=== PATIENT | female | born 1965 | race Caucasian/White ===

== ENCOUNTER 2022-06-05 00:19 | Emergency (ER) | payer OTHER ==
--- NOTE | 2022-06-05 00:43 | ED Cardiac General ---
History of Present Illness General Chief Complaint: Cardiac/General Problems Stated Complaint: HIGH BP/HEARTRATE,LEG PAIN History of Present Illness Date Seen by Provider: Jun 05, 2022 Time Seen by Provider: 00:30 Initial Comments 57-year-old female presents with rapid heart rate, high blood pressure. She reports that she just awoke tonight noticed her heart rate was rapid. That she has had a hard time sleeping the last 3 nights. patient reports that she has had bilateral leg pain for least a month month and a half. It has been worse for last couple days. Patient reports that she has a history of high blood pres sure. She is currently on lisinopril, verapamil and propanolol. Patient denies a history of atrial fibs or any known history of an arrhythmia. Patient denies chest pain, fever or chills. She does report that she has had a hard time sleeping recently and sleeping with her mouth open. She has not been evaluated for sleep apnea. Allergies and Home Medications Allergies Coded Allergies: No Known Drug Allergies (Unverified , 06/05/22) Patient Home Medication List Home Medication List Reviewed: Yes Review of Systems Review of Systems Constitutional: No chills, No fever Respiratory: Denies Cough, Denies Shortness of Air Cardiovascular: Denies Chest Pain; Irregular Heart Rate, Palpitations Gastrointestinal: No Symptoms Reported Genitourinary: No Symptoms Reported Musculoskeletal: no symptoms reported Skin: no symptoms reported Psychiatric/Neurological: No Symptoms Reported Endocrine: No Symptoms Reported Hematologic/Lymphatic: No Symptoms Reported Physical Exam Vital Signs Vital Signs - First Documented 06/05/22 00:22 Pulse 164 Resp 22 B/P (MAP) 210/138 (162) Pulse Ox 96 O2 Delivery Room Air Capillary Refill : Height, Weight, BMI Height: '" Weight: lbs. oz. kg; BMI Method: General Appearance: No Apparent Distress, WD/WN Respiratory: Lungs Clear, Normal Breath Sounds, No Accessory Muscle Use, No Respiratory Distress Cardiovascular: Normal Peripheral Pulses, Irregularly Irregular, Tachycardia Gastrointestinal: Non Tender, Soft Extremity: Normal Capillary Refill, Normal Inspection, Normal Range of Motion Neurologic/Psychiatric: Alert, Oriented x3, No Motor/Sensory Deficits, Normal Mood/Affect, charge hand II-XII Norm as Tested Skin: Normal Color, Warm/Dry Progress/Results/Core Measures Results/Orders Lab Results Laboratory Tests Test 06/05/22 00:38 Range/Units White Blood Count 7.3 4.3-11.0 10^3/uL Red Blood Count 4.28 3.80-5.11 10^6/uL Hemoglobin 12.3 11.5-16.0 g/dL Hematocrit 36 35-52 % Mean Corpuscular Volume 84 80-99 fL Mean Corpuscular Hemoglobin 29 25-34 pg Mean Corpuscular Hemoglobin Concent 34 32-36 g/dL Red Cell Distribution Width 13.7 10.0-14.5 % Platelet Count 283 130-400 10^3/uL Mean Platelet Volume 9.5 9.0-12.2 fL Immature Granulocyte % (Auto) 0 % Neutrophils (%) (Auto) 61 42-75 % Lymphocytes (%) (Auto) 26 12-44 % Monocytes (%) (Auto) 8 0-12 % Eosinophils (%) (Auto) 4 0-10 % Basophils (%) (Auto) 1 0-10 % Neutrophils # (Auto) 4.5 1.8-7.8 10^3/uL Lymphocytes # (Auto) 1.9 1.0-4.0 10^3/uL Monocytes # (Auto) 0.6 0.0-1.0 10^3/uL Eosinophils # (Auto) 0.3 0.0-0.3 10^3/uL Basophils # (Auto) 0.1 0.0-0.1 10^3/uL Immature Granulocyte # (Auto) 0.0 0.0-0.1 10^3/uL Sodium Level 139 135-145 MMOL/L Potassium Level 3.4 L 3.6-5.0 MMOL/L Chloride Level 102 98-107 MMOL/L Carbon Dioxide Level 25 21-32 MMOL/L Anion Gap 12 5-14 MMOL/L Blood Urea Nitrogen 12 7-18 MG/DL Creatinine 0.62 0.60-1.30 MG/DL Estimat Glomerular Filtration Rate 104 BUN/Creatinine Ratio 19 Glucose Level 145 H 70-105 MG/DL Calcium Level 9.9 8.5-10.1 MG/DL Corrected Calcium 9.8 8.5-10.1 MG/DL Magnesium Level 1.9 1.6-2.4 MG/DL Total Bilirubin 0.4 0.1-1.0 MG/DL Aspartate Amino Transf (AST/SGOT) 23 5-34 U/L Alanine Aminotransferase (ALT/SGPT) 19 0-55 U/L Alkaline Phosphatase 82 40-136 U/L C-Reactive Protein 1.03 H <0.50 MG/DL Total Protein 7.2 6.4-8.2 GM/DL Albumin 4.1 3.2-4.5 GM/DL My Orders Orders - SHIRLEY DE SANTIAGO DO Cbc With Automated Diff (06/05/22 00:28) Comprehensive Metabolic Panel (06/05/22 00:28) Magnesium (06/05/22:28) Crp Fs (06/05/22:28) Chest 1 View Ap/Pa Only (06/05/22:28) Ed Iv/Invasive Line Start (06/05/22:28) Ekg Tracing (06/05/22:) Monitor-Rhythm Ecg Trace Only (06/05/22:28) Metoprolol Tartrate Injection (Lopressor (06/05/22 00:45) Ekg Tracing (06/05/22 00:45) Medications Given in ED Current Medications Medications Dose Ordered Sig/Emily Route Start Time Stop Time Status Last Admin Dose Admin Metoprolol Tartrate 5 mg ONCE ONCE IV 06/05/22 00:45 06/05/22 00:46 DC 06/05/22 00:53 5 MG Vital Signs/I&O 06/05/22 00:22 Pulse 164 Resp 22 B/P (MAP) 210/138 (162) Pulse Ox 96 O2 Delivery Room Air Progress Progress Note : Progress Note Patient's initial EKG showed atrial fib with RVR with heart rates ranging on the monitor from 160s to 170s. Patient is spontaneously converted shortly after arrival. Her heart rate was still slightly elevated around 95-100 with sinus rhythm. I gave her 5 of metoprolol with her heart rate and blood pressure improved significantly. She was feeling tremendously better. Patient is currently on verapamil and propranolol. Discussed with her the need to follow- up with her primary care provider to likely adjust her medication dosage since its not been adjusted since 1995. Patient should start aspirin 81 mg daily in the morning. Patient labs were reviewed and showed no acute findings. Patient's x-ray was reviewed and shows probable mild pulmonary edema however her vital signs and oxygen was stable in the upper 90s. Patient is discharged home in stable condition Initial ECG Impression Date: Jun 05, 2022 Initial ECG Impression Time: 00:27 Initial ECG Rate: 159 Initial ECG Rhythm: A Fib/Flutter Initial ECG Impression: Nonspecific Changes EKG : EKG Time: 00:42 Rhythm: Normal Sinus ECG Impression: Nonspecific Changes Diagnostic Imaging Diagonstic Imaging: Xray Plain Films/CT/US/NM/MRI: chest Comments mild pulm edema Reviewed: Reviewed by Me Departure Impression Primary Impression: Paroxysmal atrial fibrillation with RVR Disposition: HOME, SELF-CARE Condition: Stable Departure-Patient Inst. Referrals: MARKO NÚÑEZ MD (PCP/Family) Primary Care Physician Patient Instructions: Atrial Fibrillation (DC) Add. Discharge Instructions: Please follow-up with your primary care provider as soon as possible for review of your medications and adjustment. Please consider a sleep study for sleep apnea. Return to the ER with any concerns. Please start aspirin 81 mg daily. All discharge instructions reviewed with patient and/or family. Voiced understanding. SHIRLEY DE SANTIAGO DO Jun 05, 2022 00:43
[2022-06-05] MEDS ORDERED: meTOprolol 5 MG/5 ML (LOPRESSOR) VIAL IV ONE (00:45)
[2022-06-05 00:49] LABS: BASOPHILS # (AUTO) 0.1 10^3/uL (0.0-0.1); BASOPHILS % (AUTO) 1 % (0-10); EOSINOPHILS # (AUTO) 0.3 10^3/uL (0.0-0.3); EOSINOPHILS % (AUTO) 4 % (0-10); HEMATOCRIT 36 % (35-52); HEMOGLOBIN 12.3 g/dL (11.5-16.0); LYMPHOCYTES # (AUTO) 1.9 10^3/uL (1.0-4.0); LYMPHOCYTES % (AUTO) 26 % (12-44); MEAN CORPUSCULAR HEMOGLOBIN 29 pg (25-34); MEAN CORPUSCULAR HGB CONC 34 g/dL (32-36); MEAN CORPUSCULAR VOLUME 84 fL (80-99); MEAN PLATELET VOLUME 9.5 fL (9.0-12.2); MONOCYTES # (AUTO) 0.6 10^3/uL (0.0-1.0); MONOCYTES % (AUTO) 8 % (0-12); NEUTROPHILS # (AUTO) 4.5 10^3/uL (1.8-7.8); NEUTROPHILS % (AUTO) 61 % (42-75); PLATELET COUNT 283 10^3/uL (130-400); WHITE BLOOD COUNT 7.3 10^3/uL (4.3-11.0)
[2022-06-05 01:29] LABS: POTASSIUM 3.4 MMOL/L (3.6-5.0)
[2022-06-05 01:30] LABS: ALBUMIN 4.1 GM/DL (3.2-4.5); BILIRUBIN,TOTAL 0.4 MG/DL (0.1-1.0); CALCIUM 9.9 MG/DL (8.5-10.1); CREATININE SERUM 0.62 MG/DL (0.60-1.30); MAGNESIUM 1.9 MG/DL (1.6-2.4); TOTAL PROTEIN 7.2 GM/DL (6.4-8.2)
[2022-06-05 01:40] VITALS: BP 145/62
--- NOTE | 2022-06-05 05:20 | Diagnostic Imaging Report ---
Indication: Heart palpitations Portable chest 4:47 AM Heart size and pulmonary vascularity are normal. Lungs are clear. There are no effusions or pneumothoraces. IMPRESSION: Negative chest Dictated by: Dictated on workstation # [id number]
== END 2022-06-05 01:42 | disposition home or self-care (01) ==
LOC: EDUNIT# 00:19 → ER FS 00:20
DX: I48.0 Paroxysmal atrial fibrillation (principal); R03.0 Elevated blood-pressure reading, without diagnosis of hypertension; Z28.310 Unvaccinated for COVID-19; Z79.899 Other long term (current) drug therapy
CPT/HCPCS: 36415; 71045; 80053; 83735; 85025; 86141; 93005; 93041

== ENCOUNTER → 2022-07-30 | Outpatient (CLI) | payer OTHER | LOC: CARD 12:30 | PROVIDERS: ATTEND Internal Medicine Cardiovascular Disease | DX: I25.10 Atherosclerotic heart disease of native coronary artery without angina pectoris (principal); I48.91 Unspecified atrial fibrillation; I11.9 Hypertensive heart disease without heart failure | CPT/HCPCS: 93306 ==

== ENCOUNTER → 2022-09-28 | Outpatient (CLI) | payer OTHER ==
[2022-09-28 10:40] VITALS: BP 155/87
--- NOTE | 2022-09-28 12:10 | Cardiology Stress Test Report ---
Stress Test Report Date of Procedure/Referring: Date of Procedure: September 28, 2022 PCP Marko Bustamante MD Admitting Physician Admitting Physician: Attending Physician: Annika Webster Indications: CP Baseline Heart Rate: 74 Baseline Blood Pressure: Blood Pressure Systolic: 155 Blood Pressure Diastolic: 87 Baseline EKG: Baseline EKG: NSR Summary/Conclusion: Summary: In summary, the patient started exercising with a baseline heart rate, blood pressure and EKG mentioned above Patient was able to exercise for a total of 0.23 minutes on Kody protocol, METs 1.4 Maximum heart rate 105 Maximum blood pressure 203/93 Stress EKG, Minimal nondiagnostic changes Recovery EKG , Return to baseline Conclusion: Patient was unable to exercise more than 23 seconds on the treadmill, test was terminated with a peak heart rate 105. Severe hypertensive response to exercise with peak blood pressure 203/93. Nondiagnostic EKG changes I recommend evaluating Lexiscan Myoview stress test Copy Copies To 1: MARKO BUSTAMANTE MD, BASHAR J MD September 28, 2022 12:10
== END ==
LOC: CARD 10:05
PROVIDERS: ATTEND Physician Assistant
DX: R07.9 Chest pain, unspecified (principal)
CPT/HCPCS: 93017

== ENCOUNTER → 2022-12-14 | Outpatient (CLI) | payer OTHER ==
[~2022-12-14] VITALS: Ht 160 cm; Wt 120.0 kg
[~2022-12-14] MED LIST: REGADENOSON 0.4 MG/5 ML SYR (LEXISCAN) IV ONE
[2022-12-14] MEDS: CATHETER FLUSH 10 ML SYR IVP PRN ×2 (07:19→08:58)
[2022-12-14 08:55] VITALS: BP 150/75
== END ==
LOC: CARD 07:04
PROVIDERS: ATTEND Physician Assistant
DX: I48.0 Paroxysmal atrial fibrillation (principal)
CPT/HCPCS: 78452; 93017

== ENCOUNTER 2023-02-10 10:28 | Outpatient (CLI) | payer OTHER ==
[~2023-02-10] VITALS: Ht 162.6 cm; Wt 102.5 kg
[2023-02-10] MEDS ORDERED: POLY17PO6 PO (10:52)
[2023-02-10] MEDS ORDERED: ESTR1TAB27 PO (10:52)
[2023-02-10] MEDS ORDERED: VERA120T74 PO (10:52)
[2023-02-10] MEDS ORDERED: METO-333 PO (10:52)
[2023-02-10] MEDS ORDERED: ASPI-999 PO (10:52)
[2023-02-10] MEDS ORDERED: RIVA10TA PO (10:52)
[2023-02-10] MEDS ORDERED: LISI10TA25 PO (10:52)
[2023-02-10] MEDS ORDERED: LINA145C PO (10:52)
[2023-02-10] MEDS ORDERED: SIME125C95 PO (10:52)
[2023-02-10] MEDS ORDERED: DOCU-26 PO (10:52)
== END 2023-02-10 10:55 | disposition home or self-care (01) ==
LOC: PREOP 10:28
PROVIDERS: ATTEND Surgery
DX: Z01.818 Encounter for other preprocedural examination (principal)

== ENCOUNTER 2023-02-22 08:01 | Day surgery (SDC) | payer OTHER ==
[~2023-02-22] VITALS: Ht 162.6 cm; Wt 102.5 kg
[~2023-02-22 08:01] MED LIST changes: +ASPI-999 PO; +DOCU-26 PO; +ESTR1TAB27 PO; +LINA145C PO; +LISI10TA25 PO; +METO-333 PO; +POLY17PO6 PO; -REGADENOSON 0.4 MG/5 ML SYR (LEXISCAN) IV ONE; +RIVA10TA PO; +SIME125C95 PO; +VERA120T74 PO
[2023-02-22] MEDS ORDERED: LACTATED RINGERS 1,000 ML 1,000 ML IV STA (08:10)
--- NOTE | 2023-02-22 08:38 | Progress Note-Pre Operative ---
Pre-Operative Progress Note Date of Available H&P: Feb 09, 2023 Date H&P Reviewed: Feb 22, 2023 Time H&P Reviewed: 08:34 History & Physical: H&P Reviewed, Patient Examed, No changes noted Pre-Operative Diagnosis: Screening BRANDON GODWIN DO Feb 22, 2023 08:38
[2023-02-22 08:42] VITALS: BP 166/86
[2023-02-22] MEDS ORDERED: MIDAZOLAM INJ 2 MG/2 ML VIAL ONE (09:05)
[2023-02-22] MEDS ORDERED: ATROPINE INJ 0.4 MG/ML SDV ONE (09:20)
[2023-02-22] MEDS ORDERED: hydrALAZINE INJECTION 20 MG/ML VIAL ONE (09:24)
[2023-02-22 09:50] VITALS: BP 142/69
[2023-02-22 09:55] VITALS: BP 119/58
--- NOTE | 2023-02-22 09:55 | Progress Note-Post Operative ---
Post-Operative Progess Note Surgeon (s)/Pipe Organ Builder (s) Surgeon BRANDON GODWIN DO Pipe Organ Builder: FUNMILAYO RoqueII Pre-Operative Diagnosis Screening Post-Operative Diagnosis Polyps Diverticula internal hemorrhoids anal stricture Procedure & Operative Findings Date of Procedure 02/22/23 Procedure Performed/Findings Colonoscopy with hot biopsy PROCEDURE NOTE: After informed consent was obtained, the patient was brought to the endoscopy suite, placed in bed in left lateral decubitus position. She was administered IV sedation by the RN [facility] who then monitored her vitals the entire time, heart rate, blood pressure and pulse ox. As I attempted to insert the scope, it would not go in. I palpated and found an anal stricture. With gentle pressure I was able to dilated the anus with my finger; which allowed the scope to be inserted. However, even at first my index finger was too large to fit into the anus. The scope was inserted, noted diverticula and toook a picture. I then pushed all the way to about 140 cm and pushed into the cecum, took a picture of appendiceal orifice and noted the ileocecal valve. Then slowly withdrew the scope insufflating to look circumferentially at the epperson starting in the cecum and up the ascending colon. Just outside the Cecum I found two small polyps and elected to remove them with hot biopsy. Next, up to the hepatic flexure, then down the transverse colon, splenic flexure, into the descending colon down in the sigmoid and then into the rectal vault and retroflexed the scope. Took picture of the internal hemorrhoids. The patient tolerated the procedure. She was recovered in endoscopy suite. Recommended for repeat colonoscopy in 5 years. Anesthesia Type IV sedation by RN [facility] ICU Estimated Blood Loss Estimated blood loss (mL): scant Specimens/Packing Specimens Removed Asc colon polyps BRANDON GODWIN DO Feb 22, 2023 09:55
--- NOTE | 2023-02-22 09:56 | Endoscopy Discharge Instruct ---
Endo Procedure/Findings Findings 1.: Polyp 2.: Diverticulosis 3.: Internal Hemorrhoids 4.: Other Findings (Anal Stricture) Discharge Instructions - Activity: You might feel a little sleepy until tomorrow. This is due to the medicine you received to relax you. Until tomorrow, you should: NOT drive a car, operate machinery or power tools. NOT drink any alcoholic beverages. NOT make any important decisions or sign importortant papers. Do not return to work until tomorrow, unless otherwise instructed. Resume previous activities tomorrow. Diet: Start by taking liquids. If you tolerate liquids, advance to solid food. Notify Physician - If you experience excessive bleeding, unusual abdominal pain, fever, or chest pain, contact your doctor immediately. Follow-Up: Other Follow up in my office in one week BRANDON GODWIN DO Feb 22, 2023 09:56
[2023-02-22 10:00] VITALS: BP 113/58
--- NOTE | 2023-02-22 10:16 | Anesthesia-General Post-Op ---
MAC Patient Condition Mental Status/LOC: Same as Preop Cardiovascular: Satisfactory Nausea/Vomiting: Absent Respiratory: Satisfactory Pain: Controlled Complications: Absent Post Op Complications Complications None Follow Up Care/Instructions Patient Instructions None needed. Anesthesiology Discharge Order Discharge Order Patient is doing well, no complaints, stable vital signs, no apparent adverse anesthesia problems. No complications reported per nursing. LUIS ARENAS CRNA Feb 22, 2023 10:16
[2023-02-22 11:20] VITALS: BP 113/58
== END 2023-02-22 11:20 | disposition home or self-care (01) ==
LOC: ENDO 08:01
PROVIDERS: ATTEND Surgery
DX: Z12.11 Encounter for screening for malignant neoplasm of colon (principal); D12.2 Benign neoplasm of ascending colon; K62.4 Stenosis of anus and rectum; K64.8 Other hemorrhoids; K57.30 Diverticulosis of large intestine without perforation or abscess without bleeding; G47.33 Obstructive sleep apnea (adult) (pediatric); E66.01 Morbid (severe) obesity due to excess calories; Z99.81 Dependence on supplemental oxygen; Z68.38 Body mass index [BMI] 38.0-38.9, adult; Z79.01 Long term (current) use of anticoagulants
CPT/HCPCS: 88305